=== PATIENT | male | born 2005 | race Hispanic/Latino ===

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

== ENCOUNTER 2025-01-20 14:16 | Emergency (ER) | payer SELFPAY ==
[~2025-01-20] VITALS: Ht 172.7 cm; Wt 108.9 kg
--- NOTE | 2025-01-20 16:45 | ERN ---
General Chief Complaint: Headache Stated Complaint: HEADACHE, BLURRED VISION, SINUS ISSUES Time Seen by MD: 15:17 History of Present Illness Initial Comments 19-year-old male who presents with a left-sided headache. He reports some vision changes earlier in the day. He has had pains on and off for awhile now, but he reports it was the most severe. Left-sided throbbing type headache. He thinks it may be migraine but he is concerned that he has a tumor. Allergies: Coded Allergies: No Known Drug Allergies (Unverified Allergy, Unknown, 01/05/20) Past Medical History Past Medical History: Migraines, Sinusitis Past Surgical History: None ROS Dictation VITAL SIGNS: Reviewed. GENERAL APPEARANCE: Alert, oriented x3, no acute distress, obese. HEAD AND FACE: Non-traumatic. EYES: PERRL, pink conjunctivas, eyelid no trauma, anterior chamber clear. EARS: Pinnas intact and no signs of trauma or erythema. Ear canals clear and no discharge. TMs no erythema. NOSE: No discharge, no bleeding. OROPHARYNX: Mouth normal, teeth no caries, tongue pink. Pharynx clear, no erythema. Tonsils no exudates, no abscesses noted. Mucous membrane moist. NECK: Supple, non-tender, no thyromegaly, no masses, no JVD, no bruits. BREAST: Deferred. CHEST: No tenderness, no crepitus, no paradoxical movement, no retractions. LUNGS: Clear, well-ventilated, symmetric, no rales, no wheezing, no rhonchi, no stridor, good breath sounds bilaterally. HEART: Regular rate, regular rhythm, no murmur, no gallops. VASCULAR: No peripheral edema. ABDOMEN: Soft, positive bowel sounds, nondistended, no guarding, nontender, no rebound, no masses no hepatomegaly, no splenomegaly, no Kurtz's sign, no hernias. RECTAL: Deferred. GENITAL: Deferred. NEUROLOGICAL: Normal speech, gross motor function intact, gross sensory function intact. MUSCULOSKELETAL: Neck nontender, full range of motion, back nontender, full range of motion. EXTREMITIES: Nontender, full range of motion. SKIN: Color pink, dry, no turgor, no rash, no lacerations, no abrasions, no contusions. LYMPHATICS: Deferred. Physical Exam Physical Exam Dictation CONSTITUTIONAL: No chills, no fever, no weakness, no diaphoresis, no malaise. HEAD/FACE: No signs of trauma. EENT: No eye pain, no blurred vision, no tearing, no double vision, no ear pain, no ear discharge, no nose pain, no nasal congestion, no throat pain, no throat swelling, no mouth pain. RESPIRATORY: No cough, no orthopnea, no SOB, no stridor, no wheezing. CARDIOVASCULAR: No chest pain, no edema, no palpitations, no syncope. GASTROINTESTINAL/ABDOMINAL: No abdominal pain, no constipation, no diarrhea, no nausea, no vomiting. GENITOURINARY: No abnormal discharge, no dysuria, no frequent urination, no hematuria. No complaints of pain in the genitals. MUSCULOSKELETAL: No back pain, no gout, no joint pain, no joint swelling, no muscle pain, no muscle stiffness, no neck pain. INTEGUMENTARY: No change in color, no change in hair/nails, no dryness, no lesion, no lumps, no rash. NEUROLOGICAL/PSYCH: Left-sided headache HEMATOLOGIC/LYMPHATIC: Not anemic, no history of blood clots, no apparent bleeding, no bruising, glands not swollen. All Systems Negative, Except as Noted. ED Course Orders Procedure Category Date Status Time Ct Head/Brain W/O CT 01/20/25 Resulted Contrast 16:12 Ct Maxillofacial W/O CT 01/20/25 Resulted Contrast 16:12 Vital Signs Date Time Temp Pulse Resp B/P (MAP) Pulse Ox O2 Delivery O2 Flow Rate FiO2 01/20/25 16:34 98.1 78 20 120/84 100 Room Air* 0 21 01/20/25 15:22 99.3 88 20 119/88 100 Room Air* 0 21 01/20/25 14:23 98.4 120 20 154/88 97 Room Air 0 DX & DISP Disposition: Discharge Departure Impression: Primary Impression: Migraine headache Condition: Stable Additional Instructions: Your symptoms are consistent with a migraine headache. The CT scan of your brain is unremarkable. The CT scan of your sinuses does show a small polyp in his unlikely to be causing your symptoms. This is not dangerous. When you do get migraine headaches, I recommend that you try Excedrin. This medication is [id number]. Please follow up with your primary doctor for further evaluation. Referrals: SELF,REFERRAL (PCP) NICOLE ODONNELL DO Jan 20, 2025 16:45
--- NOTE | 2025-01-20 16:55 | HMCIMG ---
CT HEAD/BRAIN W/O CONTRAST HISTORY: Headaches COMPARISON: None TECHNIQUE: Multiple sequential axial images of the head were obtained from the base of the skull through vertex. Patient was not given contrast through intravenous route. FINDINGS: The ventricles and extraventricular CSF spaces are nondilated for patient's age. There is no midline shift, mass effect or herniation. No acute intracranial bleed is seen. Visualized portion of the paranasal sinuses are grossly within normal limits. IMPRESSION: 1. No acute intracranial bleed is seen. CT was performed with one or more following dose reduction techniques: automated exposure control, adjustment of the mA and kv according to patient's size, or use of a iterative reconstruction technique.
--- NOTE | 2025-01-20 16:57 | HMCIMG ---
CT MAXILLOFACIAL W/O CONTRAST HISTORY: Headaches COMPARISON: None TECHNIQUE: Multiple sequential high-resolution axial images of the paranasal sinuses were obtained. Postprocessing sagittal and coronal reconstruction images were also obtained. Patient was not given contrast through intravenous route. FINDINGS: There is right maxillary sinus polyp. Nasal septum is grossly midline. There is no evidence of mucoperiosteal thickening involving the paranasal sinuses. The infundibula are patent bilaterally. No acute displaced fracture is seen. There is no evidence of air-fluid level in the paranasal sinuses. Parapharyngeal fat planes are preserved bilaterally. IMPRESSION: 1. No acute displaced fracture is seen. Right maxillary sinus polyp. CT was performed with one or more following dose reduction techniques: automated exposure control, adjustment of the mA and kv according to patient's size, or use of a iterative reconstruction technique.
[2025-01-20 17:59] VITALS: BP 121/80; PULSE 80; RESP 20; TEMP 98.2; O2SAT 100
== END 2025-01-20 18:02 | disposition home or self-care (01) ==
LOC: EDH 14:16
DX: G43.909 Migraine, unspecified, not intractable, without status migrainosus (principal)
CPT/HCPCS: 70450; 70486; 99284